=== PATIENT | male | born 1930 | race Caucasian/White ===

== ENCOUNTER 2017-07-12 12:18 | Inpatient (IN) | payer MEDICARE, BC ==
[~2017-07-12] VITALS: Ht 182.9 cm; Wt 121.0 kg
[2017-07-12 14:34] LABS: HEMATOCRIT 39.9 % (39.0-50.0); HEMOGLOBIN 13.9 g/dl (14.0-18.0); IMMATURE GRANULOCYTES 0.3 % (0.0-1.0); MEAN CELL VOLUME 92.8 fL CALC (80.0-100.0); MEAN CORPUSCULAR HGB 32.3 pG CALC (26.0-32.0); MEAN CORPUSCULAR HGB CONC 34.8 g/L CALC (32.0-36.0); NEUT# 9.83 thou/uL (1.82-7.42); RED BLOOD COUNT 4.3 mill/uL (4.70-6.10); RED CELL DISTRI WIDTH 12.8 % (11.5-15.5)
[2017-07-12 15:25] LABS: ALKALINE PHOSPHATASE 72 u/l (38-126); ANION GAP 16 (6-22 (CALC)); BILIRUBIN, TOTAL 0.6 mg/dL (0.0-1.4); BUN 16 mg/dL (8-23); BUN/CREATININE RATIO 18 (12-20 (CALC)); CALCIUM 9.7 mg/dL (8.4-10.2); CARBON DIOXIDE 23 mmol/l (22-30); CHLORIDE 99 mmol/l (95-108); CREATININE 0.9 mg/dL (0.7-1.3); GFR > 60 ML/MIN (>=60 (CALC)); GFR FOR AFR.AMER. > 60 ML/MIN (>=60 (CALC)); GLUCOSE 134 mg/dL (82-115); POTASSIUM 4.6 mmol/l (3.5-5.1); SGOT/AST 30 u/l (19-48); SGPT/ALT 40 u/l (11-66); SODIUM 133 mmol/l (137-146); TOTAL PROTEIN 6.6 g/dL (6.3-8.2)
[2017-07-12] MEDS ORDERED: LOSARTAN POT50 MG PO (17:26)
[2017-07-12] MEDS ORDERED: DITROPAN5 MG/TA1 PO (17:27)
[2017-07-12] MEDS ORDERED: HYDROCHLOROT12.5 MG PO (17:27)
[2017-07-12] MEDS ORDERED: TAMSULOSIN0.4 MG PO (17:28)
[2017-07-12] MEDS ORDERED: LEVOTHYROXIN100 MCG PO (17:28)
[2017-07-12] MEDS ORDERED: OMEPRAZOLE10 MG PO (17:29)
[2017-07-12] MEDS ORDERED: METFORMIN500 MG PO (17:30)
[2017-07-12] MEDS ORDERED: FINASTERIDE5 MG PO (17:30)
[2017-07-12 18:15] VITALS: BP 152/72
[2017-07-12 18:30] VITALS: BP 159/78
[2017-07-12 18:45] VITALS: BP 174/100
[2017-07-12 19:00] VITALS: BP 132/57
[2017-07-12 20:00] VITALS: BP 115/64
[2017-07-12 22:00] VITALS: BP 131/57
[2017-07-13 00:01] VITALS: BP 142/53
[2017-07-13 02:00] VITALS: BP 132/74
[2017-07-13 04:00] VITALS: BP 101/60
[2017-07-13 06:00] VITALS: BP 132/85
[2017-07-13 08:00] VITALS: BP 142/70
[2017-07-13 10:00] VITALS: BP 132/75
== END 2017-07-13 12:45 | DRG 200 ==
LOC: ED 12:18 → ED-I 17:07 → ED 17:36 → ICU 17:37
PROVIDERS: Emergency Medicine; ADMIT Internal Medicine; ATTEND Internal Medicine
DX: S27.0XXA Traumatic pneumothorax, initial encounter (principal); T79.7XXA Traumatic subcutaneous emphysema, initial encounter; S22.41XA Multiple fractures of ribs, right side, initial encounter for closed fracture; E11.9 Type 2 diabetes mellitus without complications; I10 Essential (primary) hypertension; W18.39XA Other fall on same level, initial encounter; Y93.89 Activity, other specified; Y92.73 Farm field as the place of occurrence of the external cause; Z86.73 Personal history of transient ischemic attack (TIA), and cerebral infarction without residual deficits; E03.9 Hypothyroidism, unspecified; N40.0 Benign prostatic hyperplasia without lower urinary tract symptoms; Z87.891 Personal history of nicotine dependence
CPT/HCPCS: Q9967